=== PATIENT | female | born 1950 | race Caucasian/White ===

== ENCOUNTER 2021-12-12 08:31 | Outpatient (CLI) | payer MEDICARE, BC ==
[~2021-12-12 08:31] MED LIST: BUPR300T53 PO; BUTA1CAP42 PO; LEVO75TA PO; NABU-141 PO; SUMA50TA PO
[2021-12-12] MEDS ORDERED: iohexol 300mg/ml 100ml inj. ONE (08:45)
== END 2021-12-12 23:59 | disposition home or self-care (01) ==
LOC: 64 CT 08:31
PROVIDERS: ATTEND Nurse Practitioner
DX: K57.30 Diverticulosis of large intestine without perforation or abscess without bleeding (principal); M47.819 Spondylosis without myelopathy or radiculopathy, site unspecified; Z90.49 Acquired absence of other specified parts of digestive tract
CPT/HCPCS: 74177; Q9967

== ENCOUNTER 2024-07-06 19:15 | Inpatient (IN) | payer MEDICARE, BC ==
[~2024-07-06] VITALS: Ht 165.1 cm; Wt 57.7 kg
[2024-07-06 19:48] LABS: BASOPHILS % (AUTO) 0.3 % (0-1); EOSINOPHILS % (AUTO) 0.8 % (0-6); HEMATOCRIT 35.4 % (35.0-45.0); HEMOGLOBIN 11.3 g/dl (12.0-16.0); LYMPHOCYTES # (AUTO) 0.8 X10'3 (1.1-4.8); MEAN CORPUSCULAR HEMOGLOBIN 31.7 PG (27.0-31.0); MEAN CORPUSCULAR HGB CONC 31.8 g/dL (33.0-36.5); MEAN CORPUSCULAR VOLUME 99.7 FL (78-98); MEAN PLATELET VOLUME 8.3 FL (7.4-10.4); MONOCYTES # (AUTO) 0.4 X10'3 (0-0.9); MONOCYTES % (AUTO) 7.6 % (2-12); NEUTROPHILS # (AUTO) 4.3 X10'3 (1.8-7.7); NEUTROPHILS % (AUTO) 76.3 % (42-75); PLATELET COUNT 136 X10'3 (140-440); RED BLOOD COUNT 3.55 X10'6 (4.20-5.60); RED CELL DISTRIBUTION WIDTH 13.3 % (11.5-14.5); WHITE BLOOD COUNT 5.6 X10'3 (4.5-11.0)
[2024-07-06 20:07] LABS: ALANINE AMINOTRANSFERASE 14 U/L (12-78); ALBUMIN 3.1 G/DL (3.4-5.0); ALBUMIN/GLOBULIN RATIO 0.9 (1.1-1.5); ALKALINE PHOSPHATASE 72 IU/L (46-116); ANION GAP 9 (8-16); ASPARTATE AMINO TRANSFERASE 24 U/L (10-37); BILIRUBIN,TOTAL 0.4 MG/DL (0.1-1.0); BLOOD UREA NITROGEN 14 MG/DL (7-18); BUN/CREATININE RATIO 17.5 (10.0-20.0); CALCIUM 8.7 MG/DL (8.5-10.1); CHLORIDE 107 MMOL/L (99-107); GLUCOSE 103 MG/DL (70-104); POTASSIUM 3.6 MMOL/L (3.5-5.1); SODIUM 140 MMOL/L (135-145); TOTAL CARBON DIOXIDE 23.6 MMOL/L (24-32); TOTAL PROTEIN 6.5 G/DL (6.4-8.2); eCRCL 55 ML/MIN; eGFR 70 ML/MIN
[2024-07-06 20:13] LABS: PRO BRAIN NATRIURETIC PEPTIDE 489 PG/ML (0-450)
[2024-07-06] MEDS ORDERED: ondansetron/PF 4mg/2ml inj IV PRN (21:30)
[2024-07-06] MEDS ORDERED: acetaminophen 325mg tablet PO PRN (21:30)
[2024-07-06] MEDS ORDERED: morphine 2 MG/ML inj. syringe IV PRN ×2 (21:30→23:25)
[2024-07-06] MEDS ORDERED: PERFLUTREN PROTEIN-A MICROSPHR (Optison) 0.22 MG/ML 3ML VIAL IV PRN (21:30)
[2024-07-06] MEDS ORDERED: potassium Cl 20 mEq SR tablet PO PRN (21:30)
[2024-07-06] MEDS ORDERED: magnesium sulf-water 4G/100mL 100 ML IV PRN (21:30)
[2024-07-06] MEDS ORDERED: magnesium hydroxide 30ml (MOM) UD suspension PO PRN (21:30)
[2024-07-06] MEDS ORDERED: magnesium sulf-water 2g/50mL 50 ML IV PRN (21:30)
[2024-07-06] MEDS ORDERED: HYDROcodone/acetaminophen 5mg/325mg tablet PO PRN (21:30)
[2024-07-06] MEDS ORDERED: potassium Cl 40MEQ/1/2NS 520ml 520 ML IV PRN (21:30)
[2024-07-06] MEDS ORDERED: mag hydrox/Alum hydrox/simeth 30ml oral suspension PO PRN (21:30)
[2024-07-06] MEDS ORDERED: magnesium Cl slow-release 64mg tablet PO PRN (21:30)
[2024-07-06] MEDS ORDERED: COLE625T13 PO (21:35)
[2024-07-06] MEDS ORDERED: HYDR-3964 PO (21:36)
[2024-07-06 22:52] LABS: HEMOGLOBIN A1C 5.5 % (4.5-6.2)
[2024-07-06] MEDS: furosemide 10 MG/1 ML 10ml inj IV SCH (23:44)
[2024-07-06] MEDS: nitroGLYCERIN 0.1mg/hour patch TD SCH (23:44)
[2024-07-07] VITALS (14 sets, daily range): BP systolic 124–169; BP diastolic 69–94; PULSE 70–125; RESP 12–16; TEMP 98–98.6; O2SAT 98–100
[2024-07-07] MEDS ORDERED: metoprolol tartrate 1mg/ml inj IV PRN
[2024-07-07] MEDS ORDERED: aminophylline 250mg/10ml inj. IV PRN
[2024-07-07] MEDS ORDERED: nitroGLYCERIN 0.4mg SUBLingual tab SL PRN
[2024-07-07] MEDS ORDERED: butalbital 50MG/acetaminophen 325MG/caffeine 40MG (Fioricet) CAPSULE PO PRN (00:20)
[2024-07-07 02:00] LABS: THYROID STIMULATING HORMONE 0.64 ulU/ml (0.34-4.50)
[2024-07-07 02:41] LABS: BILIRUBIN,URINE NEGATIVE (Neg); CLARITY,URINE CLEAR (Clear); COLOR,URINE STRAW (Yellow); GLUCOSE, URINE NEGATIVE (Neg); KETONES,URINE NEGATIVE (Neg); LEUKOCYTE ESTERASE ,URINE NEGATIVE (Neg); NITRITES, URINE NEGATIVE (Neg); OCCULT BLOOD,URINE NEGATIVE (Neg); PROTEIN,URINE NEGATIVE (Neg); UROBILINOGEN,URINE 0.2 E.U/dL (0.2-1.0)
[2024-07-07 02:48] LABS: UA COLLECTION TYPE CLN CATCH MIDSTREAM
[2024-07-07] MEDS ORDERED: loperamide 2mg capsule PO PRN ×2 (04:35→04:39)
[2024-07-07 07:59] LABS: ALBUMIN 3.1 G/DL (3.4-5.0); ANION GAP 12 (8-16); BLOOD UREA NITROGEN 12 MG/DL (7-18); BUN/CREATININE RATIO 13.3 (10.0-20.0); CHLORIDE 106 MMOL/L (99-107); CHOL/HDL RATIO 1.6 (0.00-4.99); CHOLESTEROL 198 MG/DL (0-200); GLUCOSE 102 MG/DL (70-104); HDL CHOLESTEROL 125 MG/DL (35-60); LDL CHOLESTEROL 63 MG/DL (50-100); POTASSIUM 3.1 MMOL/L (3.5-5.1); SODIUM 143 MMOL/L (135-145); TOTAL CARBON DIOXIDE 24.6 MMOL/L (24-32); TRIGLYCERIDES 100 MG/DL (20-135); eCRCL 49 ML/MIN; eGFR 61 ML/MIN
[2024-07-07] MEDS: docusate sod 100mg capsule PO SCH (08:00)
[2024-07-07] MEDS: NABUMETONE PO SCH (08:00)
[2024-07-07] MEDS ORDERED: regadenoson 0.4mg/5ml syringe IV ONE (08:26)
[2024-07-07 08:34] LABS: BASOPHILS % (AUTO) 0.7 % (0-1); EOSINOPHILS # (AUTO) 0.1 X10'3 (0-0.9); EOSINOPHILS % (AUTO) 2.1 % (0-6); HEMATOCRIT 35.2 % (35.0-45.0); HEMOGLOBIN 11.6 g/dl (12.0-16.0); LYMPHOCYTES # (AUTO) 1.2 X10'3 (1.1-4.8); LYMPHOCYTES % (AUTO) 26.8 % (21-51); MEAN CORPUSCULAR HEMOGLOBIN 32.6 PG (27.0-31.0); MEAN CORPUSCULAR VOLUME 98.5 FL (78-98); MEAN PLATELET VOLUME 8.9 FL (7.4-10.4); MONOCYTES # (AUTO) 0.5 X10'3 (0-0.9); MONOCYTES % (AUTO) 10.5 % (2-12); NEUTROPHILS # (AUTO) 2.8 X10'3 (1.8-7.7); NEUTROPHILS % (AUTO) 59.9 % (42-75); PLATELET COUNT 168 X10'3 (140-440); RED BLOOD COUNT 3.57 X10'6 (4.20-5.60); RED CELL DISTRIBUTION WIDTH 12.9 % (11.5-14.5); WHITE BLOOD COUNT 4.6 X10'3 (4.5-11.0)
[2024-07-07] MEDS: regadenoson 0.4mg/5ml syringe IV PRN (09:15)
[2024-07-07] MEDS ORDERED: furosemide 20 MG/2 ML vial IV SCH (10:34)
[2024-07-07] MEDS: furosemide 20 MG/2 ML vial ONE (10:38)
[2024-07-07] MEDS: potassium Cl 20 mEq SR tablet PO PRN (10:42)
[2024-07-07] MEDS: K and/or MAG REPLACEMENT MC SCH (10:42)
[2024-07-07] MEDS: levoTHYROXINE 75mcg tablet PO SCH (10:42)
[2024-07-07] MEDS: heparin, porcine 5000 units/ml vial SQ SCH (10:43)
[2024-07-07] MEDS: metoprolol tartrate 1mg/ml inj IV ONE (11:24)
[2024-07-07] MEDS: colesevelam 625mg tablet PO SCH (14:26)
[2024-07-07] MEDS: metoprolol succinate 25mg (24-HOUR) SR. Tablet PO ONE (14:26)
[2024-07-08 02:00] VITALS: BP 127/70; PULSE 69; RESP 13; TEMP 97; O2SAT 97
[2024-07-08 06:00] VITALS: BP 124/58; PULSE 65; RESP 14; TEMP 97.5; O2SAT 99
[2024-07-08] MEDS ORDERED: colesevelam 625mg tablet PO SCH (08:00)
[2024-07-08] MEDS: metoprolol succinate 25mg (24-HOUR) SR. Tablet PO SCH (08:02)
[2024-07-08] MEDS: apixaban 5mg tablet PO SCH (08:05)
[2024-07-08 08:21] LABS: BASOPHILS % (AUTO) 1.2 % (0-1); EOSINOPHILS # (AUTO) 0.2 X10'3 (0-0.9); EOSINOPHILS % (AUTO) 4.6 % (0-6); HEMATOCRIT 36.4 % (35.0-45.0); HEMOGLOBIN 12.1 g/dl (12.0-16.0); LYMPHOCYTES # (AUTO) 1.6 X10'3 (1.1-4.8); LYMPHOCYTES % (AUTO) 41.4 % (21-51); MEAN CORPUSCULAR HEMOGLOBIN 32.7 PG (27.0-31.0); MEAN CORPUSCULAR HGB CONC 33.2 g/dL (33.0-36.5); MEAN CORPUSCULAR VOLUME 98.5 FL (78-98); MEAN PLATELET VOLUME 8.9 FL (7.4-10.4); MONOCYTES # (AUTO) 0.4 X10'3 (0-0.9); MONOCYTES % (AUTO) 9.9 % (2-12); NEUTROPHILS # (AUTO) 1.6 X10'3 (1.8-7.7); NEUTROPHILS % (AUTO) 42.9 % (42-75); PLATELET COUNT 168 X10'3 (140-440); RED BLOOD COUNT 3.69 X10'6 (4.20-5.60); WHITE BLOOD COUNT 3.8 X10'3 (4.5-11.0)
[2024-07-08 08:37] LABS: ALBUMIN 2.8 G/DL (3.4-5.0); ANION GAP 5 (8-16); BLOOD UREA NITROGEN 14 MG/DL (7-18); BUN/CREATININE RATIO 14.6 (10.0-20.0); CALCIUM 8.7 MG/DL (8.5-10.1); CHLORIDE 106 MMOL/L (99-107); CREATININE 0.96 MG/DL (0.40-0.90); GLUCOSE 92 MG/DL (70-104); MAGNESIUM 1.9 MG/DL (1.5-2.4); POTASSIUM 4.6 MMOL/L (3.5-5.1); SODIUM 140 MMOL/L (135-145); TOTAL CARBON DIOXIDE 28.7 MMOL/L (24-32); eCRCL 46 ML/MIN; eGFR 57 ML/MIN
[2024-07-08 08:55] VITALS: RESP 14; O2SAT 99
[2024-07-08] MEDS ORDERED: METO-395 PO (10:48)
[2024-07-08] MEDS ORDERED: APIX5TAB3 PO (10:48)
[2024-07-08 10:52] VITALS: BP 163/64; PULSE 71; RESP 16; TEMP 98.2; O2SAT 96
== END 2024-07-08 12:19 | disposition home or self-care (01) | DRG 552 ==
LOC: ER 19:16 → ED HOLD 22:36 → PCU 3S 07-07 18:50
PROVIDERS: ADMIT Internal Medicine Critical Care Medicine; ATTEND Family Medicine
PROC: 4A02XM4 Measurement of Cardiac Total Activity, External Approach (ICD-10-PCS; principal; 2024-07-07)
PROC: 3E033HZ Introduction of Radioactive Substance into Peripheral Vein, Percutaneous Approach (ICD-10-PCS; 2024-07-07)
DX: M99.01 Segmental and somatic dysfunction of cervical region (principal); E44.1 Mild protein-calorie malnutrition; I48.91 Unspecified atrial fibrillation; M79.7 Fibromyalgia; D53.9 Nutritional anemia, unspecified; K58.0 Irritable bowel syndrome with diarrhea; E03.9 Hypothyroidism, unspecified; Z88.2 Allergy status to sulfonamides; Z90.710 Acquired absence of both cervix and uterus; Z90.49 Acquired absence of other specified parts of digestive tract; Z68.21 Body mass index [BMI] 21.0-21.9, adult; Z79.01 Long term (current) use of anticoagulants
CPT/HCPCS: 36415; 71045; 78452; 80048; 80053; 80061; 81003; 82607; 83036; 83735; 83880; 84443; 84484; 85025; 93005; 93017; 93306; 99285; A9500; G0378; J1644; J1940; J2785; J3490